=== PATIENT | male | born 1980 | race Caucasian/White ===

== ENCOUNTER 2023-01-08 21:46 | Inpatient (IN) | payer OTHER, SELFPAY ==
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
[2023-01-08 21:52] VITALS: BP 148/86; PULSE 66; O2SAT 97; BMI 35.9
[2023-01-08 21:58] VITALS: BP 138/76; PULSE 6; RESP 18; TEMP 36.5; O2SAT 98
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
--- NOTE | 2023-01-08 22:12 | MHC.EDTECH ---
Patient changed over and belongings in locker 9 in pod
--- NOTE | 2023-01-08 22:14 | ED.PSYCH ---
HPI - Psych General Chief Complaint: Psychiatric Symptoms Stated Complaint: SI, pt wrapped cord around neck, per ems Time Seen by Provider: 01/08/23 22:11 Source: patient Mode of arrival: ambulatory Limitations: no limitations History of Present Illness HPI Narrative: Patient history of opiate abuse depression PTSD not seeing any therapist or psychiatrist not taking any medication under increased stress lately patient is homeless and jobless and his girlfriend left him today patient did not know what to do called the slot operations manager first and then tried to put cord around his neck for few minutes which was cut by slot operations manager patient did not choke no petechiae no subconjunctival hemorrhage for alert and awake when the slot operations manager came complaining of mild pain in the neck no history of suicidal attempt in the past Related Data Home Medications Medication Instructions Recorded Confirmed hydroxyzine pamoate 50 mg capsule 50 mg PO BID PRN Anxiety 01/09/23 01/09/23 prazosin 1 mg capsule 1 mg PO BEDTIME 01/09/23 01/09/23 quetiapine 100 mg tablet 100 mg PO BEDTIME 01/09/23 01/09/23 quetiapine 200 mg tablet 200 mg PO BEDTIME 01/09/23 01/09/23 sertraline 50 mg tablet mg PO 01/09/23 Allergies Allergy/AdvReac Type Severity Reaction Status Date / Time No Known Allergies Allergy Verified 01/08/23 22:15 Review of Systems Review of Systems: Yes all other systems are reviewed and are negative [facility] Social History Alcohol intake: current Alcohol intake frequency: a few times a month Smoked in Last 30 Days: Yes Use of substances other than those prescribed or required for medical reasons: Yes Substance Use Type: Marijuana and Painkillers Substance Use Type Other:: percocet Substance Use Frequency: Daily Last Used Substance: Hours (ago) Advance Directives: No Advance Directives Information Provided: No Healthcare Proxy: No Guardian: No Physical Exam Vital Signs: Vital Signs: Last Vital Signs Temp 97.7 F 01/08/23 21:58 Pulse 6 L 01/08/23 21:58 Resp 16 01/09/23 07:31 BP 138/76 01/08/23 21:58 Pulse Ox 98 01/08/23 21:58 O2 Del Method Room Air 01/08/23 21:58 BMI result Body Mass Index 35.9 Appearance: Alert. Oriented X3. No acute distress. Eyes: PERRLA, No Nystagmus ENT: Pharynx normal. Oral Mucosa moist no petechia palak on the face no subconjunctival hemorrhage Neck: Normal inspection. Neck supple. Erythematous palak of the cord on the neck CVS: Normal heart rate and rhythm. Pulses normal. Respiratory: No respiratory distress. Equal air entry bilateral, no wheezing/rales/rhonchi Abdomen: Soft and nontender. Bowel sounds are present, no mass palpable, no CVA tenderness Skin: Skin warm and dry. Normal skin color. Normal skin turgor. Extremities: No lower extremity edema. No calf tenderness psych: Depressed denied any SI or HI at this time no hallucinations or delusions Neuro: Oriented X 3. No motor deficit. No sensory deficit.No cerebellar signs , cranial nerves II-XII intact Medical Decision Making Medical Decision Making [facility] Narrative: Patient has significant depression with suicidal ideation and attempt seen by care team plan for inpatient admission Differential Diagnosis Differential Diagnoses: The differential diagnosis associated with the presentation includes Lab Data [facility] Lab Attestation statement: I reviewed the patient's lab results. 01/08/23 22:53 01/08/23 22:53 Labs: Lab Results 01/08/23 01/09/23 01/09/23 Range/Units 22:53 00:10 00:12 WBC 11.6 H (4.8-10.8) X10*3/uL RBC 4.40 L (4.60-5.80) X10*6/uL Hgb 12.4 L (14.0-18.0) g/dl Hct 37.1 L (42.0-52.0) % MCV 84.3 (80.0-98.0) fL MCH 28.2 (27.0-33.0) pg MCHC 33.4 (31.0-36.0) g/dl RDW 13.2 (11.0-16.0) % Plt Count 267 (160-400) X10*3/uL MPV 9.2 L (9.4-12.4) fL Immature Gran % (Auto) 0.3 (0.0-0.4) % Neut % (Auto) 72.9 (45-73) % Lymph % (Auto) 17.3 L (20-40) % [place] % (Auto) 7.3 (2-11) % Eos % (Auto) 1.3 (0-4) % Baso % (Auto) 0.9 (0-2) % Lymph # (Auto) 2.0 (1.2-4.9) X10*3/uL [place] # (Auto) 0.8 (0.1-1.2) X10*3/uL Eos # (Auto) 0.2 (0.0-0.4) X10*3/uL Baso # (Auto) 0.1 (0.0-0.2) X10*3/uL Abs Immat Gran (auto) 0.03 (0.00-0.03) X10*3/uL Absolute Neuts (auto) 8.5 H (2.0-8.3) x10*3/uL Absolute Nucleated RBC 0.000 (0.0-0.012) X10*3/uL Nucleated RBC % (auto) 0.0 (0.0-0.2) /100WBC Sodium 142 (135-145) mmol/L Potassium 3.6 (3.3-5.1) mmol/L Chloride 106 (96-108) mmol/L Carbon Dioxide 27 (22-29) mmol/L Anion Gap 13 (12-20) BUN 14 (9-16) mg/dL Creatinine 0.71 (0.5-1.4) mg/dL Estim Creat Clear Calc 128.8 Estimated GFR > 60 Random Glucose 95 (60-115) mg/dL Calcium 9.3 (8.4-10.2) mg/dL Total Bilirubin 0.2 (0.0-1.0) mg/dL AST 15 (5-37) U/L ALT 12 (0-40) U/L Alkaline Phosphatase 54 (39-117) U/L Total Protein 6.9 (6.5-8.0) g/dL Albumin 4.5 (3.5-5.0) g/dL Urine Color Yellow Urine Appearance Clear Urine pH 5.5 (5.0-9.0) Ur Specific [place] 1.015 (1.005-1.025) Urine Protein Negative (Neg-Trace) mg/dL Urine Glucose (UA) Negative (Negative) mg/dL Urine Ketones Negative (Negative) mg/dL Urine Blood Negative (Negative) Urine Nitrite Negative (Negative) Ur Leukocyte Esterase Negative (Negative) Urine Opiates Screen Not Detected (Not Detect) Urine Fentanyl Screen POSITIVE H (Not Detect) Ur Barbiturates Screen Not Detected (Not Detect) Ur Phencyclidine Scrn Not Detected (Not Detect) Ur Amphetamines Screen Not Detected (Not Detect) U Benzodiazepines Scrn Not Detected (Not Detect) Urine Cocaine Screen Not Detected (Not Detect) U Marijuana (THC) Screen POSITIVE H (Not Detect) Ethyl Alcohol < 10 mg/dL Independent Interpretation I performed an independent interpretation of an: CT Scan Interpretation: CT/CT soft tissue neck wo IV con IMPRESSION: 1. No demonstrated focal lesion, collection, pathologically enlarged lymphadenopathy, or abnormal enhancement within the soft tissues of the neck. 2. No evidence of acute fracture or traumatic subluxation of the cervical spine. Radiology Impression Discussion of test interpretation with radiology: I have reviewed the radiologist's reading. Discharge Plan Discharge Clinical Impression: Suicide attempt, Major depression, Polysubstance abuse Patient Disposition: Still a Patient Prescriptions: No Action prazosin 1 mg capsule 1 mg PO BEDTIME quetiapine 200 mg tablet 200 mg PO BEDTIME hydroxyzine pamoate 50 mg capsule 50 mg PO BID PRN (Reason: Anxiety) quetiapine 100 mg tablet 100 mg PO BEDTIME sertraline 50 mg tablet PO Interventions: [place]-Suicide Risk Severity Scale Last Done: 01/09/23 00:13
[2023-01-08 22:57] LABS: MANUAL DIFF FLAG NO
[2023-01-08 22:58] LABS: Basophils Absolute Auto 0.1 X10*3/uL (0.0-0.2); Basophils Percent Auto 0.9 % (0-2); Eosinophils Absolute Auto 0.2 X10*3/uL (0.0-0.4); Eosinophils Percent Auto 1.3 % (0-4); Hematocrit 37.1 % (42.0-52.0); Hemoglobin 12.4 g/dl (14.0-18.0); Imm Gran Abs Auto 0.03 X10*3/uL (0.00-0.03); Imm Gran Pct Auto 0.3 % (0.0-0.4); Lymphocytes Percent Auto 17.3 % (20-40); Mean Corpuscular HGB Conc 33.4 g/dl (31.0-36.0); Mean Corpuscular Hemoglobin 28.2 pg (27.0-33.0); Mean Corpuscular Volume 84.3 fL (80.0-98.0); Mean Platelet Volume 9.2 fL (9.4-12.4); Monocytes Absolute Auto 0.8 X10*3/uL (0.1-1.2); Monocytes Percent Auto 7.3 % (2-11); Neutrophils Absolute Auto 8.5 x10*3/uL (2.0-8.3); Neutrophils Percent Auto 72.9 % (45-73); Platelet Count 267 X10*3/uL (160-400); Red Cell Distribution Width 13.2 % (11.0-16.0); White Blood Count 11.6 X10*3/uL (4.8-10.8)
[2023-01-08 23:12] LABS: Ethanol < 10 mg/dL
[2023-01-08 23:13] LABS: Alanine Aminotransferase 12 U/L (0-40); Albumin Level 4.5 g/dL (3.5-5.0); Alkaline Phosphatase 54 U/L (39-117); Anion Gap 13 (12-20); Aspartate Amino Transferase 15 U/L (5-37); Bilirubin Total 0.2 mg/dL (0.0-1.0); Blood Urea Nitrogen 14 mg/dL (9-16); Calcium 9.3 mg/dL (8.4-10.2); Carbon Dioxide 27 mmol/L (22-29); Chloride 106 mmol/L (96-108); Creatinine Clr Calc Pharmacy 128.8; Estimated Glomerular Filt Rate > 60; Glucose Random 95 mg/dL (60-115); Potassium 3.6 mmol/L (3.3-5.1); Sodium 142 mmol/L (135-145); Total Protein 6.9 g/dL (6.5-8.0)
--- NOTE | 2023-01-08 23:50 | PC.NURSE ---
pt resting comfortably with eyes closed, breathing even and unlabored. no apparent distress noted. sitter at bedside
--- NOTE | 2023-01-09 00:05 | PC.NURSE ---
pt transferred to Main ED to pod, Section 12, calm and cooperative
[2023-01-09 00:19] LABS: Appearance Urine Clear; Color Urine Yellow; Glucose Urine UA Negative (Negative); Leukocyte Esterase Urine Negative (Negative); Nitrite Urine Negative (Negative); PH 5.5 (5.0-9.0); Specific Gravity - Urine 1.015 (1.005-1.025); Urine Blood Negative (Negative); Urine Ketones Negative (Negative); Urine Protein Negative (Neg-Trace)
[2023-01-09 00:25] LABS: Amphetamine Screen Urine Not Detected (Not Detect); Barbiturates, Urine Not Detected (Not Detect); Benzodiazepines Screen Urine Not Detected (Not Detect); Cannabinoid Screen Urine POSITIVE (Not Detect); Cocaine Screen Urine Not Detected (Not Detect); Fentanyl, urine POSITIVE (Not Detect); Opiate Screen Urine Not Detected (Not Detect); Phencyclidine Screen Urine Not Detected (Not Detect)
--- NOTE | 2023-01-09 02:31 | PC.NURSE ---
pt reported he crushes his 4-6 percocet a day for many years last dose yesterday am. Dr. Peters aware
--- NOTE | 2023-01-09 02:42 | PC.NURSE ---
pt section 12 by care team
[2023-01-09 07:31] VITALS: RESP 16
[2023-01-09] MEDS: LORazepam 1 MG TABLET 2 MG PO (11:50)
--- NOTE | 2023-01-09 11:58 | PC.NURSE ---
patient is alert and oriented and able to make needs known. Patient is able to ambulate on his own around POD. Patient has been gagging all morning without vomiting. scored an 8 on COWS. Patient states they feel they are withdrawing. MD consulted, patient given 2mg ativan. Pending effect.
[2023-01-09 14:42] VITALS: RESP 16
--- NOTE | 2023-01-09 19:26 | PC.NURSE ---
patient appears to remain asleep at present respirations are even and unlabored patient appears in no distress
[2023-01-09 19:37] LABS: COVID-19 Test Negative (Negative); IDNOW Serial# 6674DD1D
[2023-01-09 23:01] VITALS: BP 103/82; PULSE 82; RESP 17; TEMP 36.8; O2SAT 97
[2023-01-10] MEDS: QUEtiapine Fumarate 50 MG TABLET PO (01:20)
[2023-01-10] MEDS: LORazepam 1 MG TABLET 2 MG PO (08:40)
[2023-01-10 09:47] VITALS: RESP 18
[2023-01-10 14:12] VITALS: RESP 16
--- NOTE | 2023-01-10 17:25 | PC.NURSE ---
patient is alert and able to make needs known. Patient denies SI/HI. patient has a good appetite and ate 100% of breakfast and lunch. Patient stated they felt like they were withdrawing from opiates and felt nauseous and anxious. MD consulted. 2mg ativan given given PO with positive effect. Patient is able to ambulate on his own around unit.
[2023-01-10 21:38] VITALS: BP 133/81; PULSE 71; RESP 17; TEMP 36.9; O2SAT 95
--- NOTE | 2023-01-11 | ECG_ITS ---
Test Reason : CHECK PROLONG QT Blood Pressure : / mmHG Vent. Rate : 052 BPM Atrial Rate : 052 BPM P-R Int : 144 ms QRS Dur : 096 ms QT Int : 428 ms P-R-T Axes : 054 063 069 degrees QTc Int : 398 ms Sinus bradycardia Otherwise normal ECG No previous ECGs available Referred By: Claudette Dalal Electronically Signed By:
--- NOTE | 2023-01-11 04:26 | PC.NURSE ---
Pt resting at the bedside. No apparent distress noted. Monitoring is ongoing.
[2023-01-11 05:35] VITALS: RESP 18
[2023-01-11] MEDS: Ondansetron ODT 4 MG TAB.RAPDIS TRANSLINGU (11:31)
[2023-01-11] MEDS: LORazepam 1 MG TABLET 2 MG PO (11:31)
--- NOTE | 2023-01-11 11:56 | P.CNPS_ITS ---
History of Present Illness Date of Service: 01/11/2023 Chief Complaint: SI, pt wrapped cord around neck, per ems Reason for Consult: SI/opioid withdrawal Discussed with referring provider: Yes Sources of Information: patient interviewed, chart reviewed and crisis/core team assessment reviewed HPI Narrative: Mr. Easton is a 42 year-old male with hx of opioid use disorder and MDD who self presented to [facility] ED reporting increase depression and suicidal ideation. Pt was assessed by care team and currently bed search for psych. Pt currently presents with physical discomfort including loose stools vomiting, muscle aches, anxious mood s/s to opioid withdrawal. Pt reports using 8-9 percosets daily for years. He reports he has had methadone for taper but has not been on MAT. He reports he is mostly interested in taper with methadone but not to stay on it long terms. He continues to report depressed mood, SI, no plan. No signs of psychosis or delusions. Diagnostics Vital Signs (24Hr): Vital Signs - 24 hr 01/10/23 14:12 01/10/23 21:38 01/11/23 05:35 Temperature 98.5 F Pulse Rate 71 Respiratory Rate 16 17 18 Blood Pressure 133/81 Pulse Oximetry 95 Oxygen Delivery Method Room Air BMI result Body Mass Index 35.9 Labs 01/08/23 22:53 01/08/23 22:53 Labs: Laboratory Results - last 48 hr 01/09/23 18:58 COVID-19 (JERRY) Negative COVID-19 Clin Com See Note Imaging Radiology Impressions: ITS Impressions Soft Tissue Neck CT 01/08/23 22:48 IMPRESSION: 1. No demonstrated focal lesion, collection, pathologically enlarged lymphadenopathy, or abnormal enhancement within the soft tissues of the neck. 2. No evidence of acute fracture or traumatic subluxation of the cervical spine. Mental Status Exam Mental Status Exam Narrative: Appearance: wearing hospital gown, fair hygiene, in NAD Behavior: cooperative Psychomotor: no agitation or retardation noted Speech: clear, normal rate/rhythm/volume, spontaneous TP: linear TC: no signs of psychosis, feeling physically unwell Mood: not well Affect: congruent SI: continues to report HI: none VH/AH: none Delusions: none Insight/judgment: fair x 2. memory/cog: alert, oriented x 3. grossly intact to conversational testing. Medications Medications Current Medications Cyclobenzaprine HCl (Cyclobenzaprine Hcl 10 Mg Tablet) 10 mg PO TID PRN PRN Reason: muscle spams Loperamide HCl (Loperamide Hcl 2 Mg Capsule) 2 mg PO Q4H PRN PRN Reason: loose stool Allergies Allergies Allergy/AdvReac Type Severity Reaction Status Date / Time No Known Allergies Allergy Verified 01/08/23 22:15 Assessment & Plan Assessment & Plan (1) MDD (major depressive disorder), recurrent episode, moderate: Status: Acute Code(s): F33.1 - Major depressive disorder, recurrent, moderate (2) Opioid use disorder, moderate, dependence: Status: Acute Code(s): F11.20 - Opioid dependence, uncomplicated Plan Mr. Easton is a 42 year-old male with hx of opioid use disorder, MDD who self presented to [facility] ED reporting increase depression, SI. He is currently experiencing s/s of opioid use withdrawal. He is interested in methadone taper, no interested in MAT. We discussed risks, benefits and alternative treatment options. Will order comfort medication including loperamide, muscle relaxant, clonidine. Will given one time dose of methadone 20mg. PLAN 1. Continue bedsearch for inpt psych 2. ordered methadone 20mg one time, may receive up to 40mg in next 24hr. 3. ordered loperamide, flexeril, clonidine. Total time managing care of this patient today ____ minutes.
--- NOTE | 2023-01-11 12:00 | PC.NURSE ---
pt vomitted x 1 , states he has been withdrawing from street percs , pt given ativan and miranda Baker from Psych started the pt on methadone,
[2023-01-11] MEDS: methADONE HCl 20 MG/2 ML ORAL.CONC PO (12:12)
[2023-01-11] MEDS: Cyclobenzaprine HCl 10 MG TABLET PO (12:19)
[2023-01-11] MEDS: Loperamide HCl 2 MG CAPSULE PO (12:19)
[2023-01-11 18:14] VITALS: BP 131/80; PULSE 81; RESP 15; TEMP 36.8; O2SAT 95
[2023-01-11 18:19] VITALS: BMI 24.6
[2023-01-11] MEDS: Nicotine 21 MG PATCH.TD24 TRANSDERMA (19:04)
[2023-01-11] MEDS: hydrOXYzine HCL 25 MG TABLET PO (19:04)
[2023-01-11] MEDS: OLANZapine 5 MG TABLET PO (19:04)
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
[2023-01-11] MEDS: Nicotine Polacrilex 2 MG GUM 4 MG BUCCAL (21:24)
[2023-01-11] MEDS: traZODone HCL 50 MG TABLET PO ×2 (21:24→22:28)
[2023-01-12 08:15] VITALS: BP 126/65; PULSE 69; RESP 16; TEMP 36.6; O2SAT 96
[2023-01-12] MEDS: Nicotine 21 MG PATCH.TD24 TRANSDERMA (09:36)
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
[2023-01-12] MEDS: methADONE HCl 20 MG/2 ML ORAL.CONC PO (10:38)
[2023-01-12] MEDS: Cyclobenzaprine HCl 10 MG TABLET PO (10:39)
[2023-01-12] MEDS: Ondansetron ODT 4 MG TAB.RAPDIS TRANSLINGU (10:40)
[2023-01-12] MEDS: hydrOXYzine HCL 25 MG TABLET PO (13:18)
[2023-01-12 18:00] VITALS: BP 136/67; PULSE 72; TEMP 36.7; O2SAT 97
[2023-01-12 18:33] LABS: COVID-19 Test Negative (Negative); IDNOW Serial# BCCEAD1C
[2023-01-12] MEDS: OLANZapine 5 MG TABLET PO (21:33)
[2023-01-12] MEDS: traZODone HCL 50 MG TABLET PO (21:33)
[2023-01-13] MEDS: methADONE HCl 20 MG/2 ML ORAL.CONC 15 MG PO (08:14)
[2023-01-13] MEDS: FLUoxetine HCl 10 MG CAPSULE PO (08:14)
[2023-01-13] MEDS: Nicotine 21 MG PATCH.TD24 TRANSDERMA (08:19)
[2023-01-13 08:24] VITALS: BP 131/59; PULSE 77; RESP 16; TEMP 36.7; O2SAT 98
[2023-01-13] MEDS: OLANZapine 5 MG TABLET PO (17:06)
[2023-01-13 18:00] VITALS: BP 146/65; PULSE 71; TEMP 36.8; O2SAT 97
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
[2023-01-13] MEDS: QUEtiapine Fumarate 50 MG TABLET PO (23:03)
[2023-01-13] MEDS: traZODone HCL 50 MG TABLET PO (23:03)
[2023-01-14] MEDS: traZODone HCL 50 MG TABLET PO ×2 (01:07→22:30)
[2023-01-14] MEDS: Nicotine 21 MG PATCH.TD24 TRANSDERMA (08:17)
[2023-01-14] MEDS: methADONE HCl 20 MG/2 ML ORAL.CONC 15 MG PO (08:21)
[2023-01-14] MEDS: FLUoxetine HCl 10 MG CAPSULE PO (08:21)
[2023-01-14 09:02] VITALS: BP 130/72; PULSE 71; RESP 14; TEMP 36.5; O2SAT 95
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
[2023-01-14 11:20] VITALS: BMI 24.1
[2023-01-14 11:51] LABS: COVID-19 Test Negative (Negative); IDNOW Serial# 9DB6401D
[2023-01-14 16:20] VITALS: BP 124/61; PULSE 76; TEMP 36.7
[2023-01-14] MEDS: Cyclobenzaprine HCl 10 MG TABLET PO ×2 (16:21→22:28)
[2023-01-14] MEDS: cloNIDine HCL 0.1 MG TABLET PO ×2 (16:22→22:31)
[2023-01-14] MEDS: QUEtiapine Fumarate 50 MG TABLET PO (22:30)
[2023-01-15] MEDS: Nicotine 21 MG PATCH.TD24 TRANSDERMA (09:04)
[2023-01-15] MEDS: FLUoxetine HCl 10 MG CAPSULE PO (09:05)
[2023-01-15] MEDS: methADONE HCl 20 MG/2 ML ORAL.CONC 10 MG PO (09:05)
[2023-01-15 10:00] VITALS: BP 131/69; PULSE 75; RESP 16; TEMP 37.1; O2SAT 96
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
[2023-01-15 19:41] VITALS: BP 125/68; PULSE 71; RESP 16; TEMP 36.7; O2SAT 97
[2023-01-15 22:00] VITALS: BP 130/70
[2023-01-15] MEDS: traZODone HCL 50 MG TABLET PO (22:30)
[2023-01-15] MEDS: cloNIDine HCL 0.1 MG TABLET PO (22:30)
[2023-01-15] MEDS: Cyclobenzaprine HCl 10 MG TABLET PO (22:30)
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
[2023-01-16 08:50] VITALS: BP 127/70; PULSE 80; RESP 16; TEMP 36.4; O2SAT 96
[2023-01-16] MEDS: FLUoxetine HCl 10 MG CAPSULE PO (08:53)
[2023-01-16] MEDS: methADONE HCl 20 MG/2 ML ORAL.CONC 5 MG PO (08:55)
[2023-01-16] MEDS: Nicotine 21 MG PATCH.TD24 TRANSDERMA (08:58)
[2023-01-16 11:17] LABS: COVID-19 Test Negative (Negative); IDNOW Serial# 08D9AD1C
[2023-01-16 16:59] VITALS: BP 125/69; PULSE 79; TEMP 36.7; O2SAT 96
[2023-01-16] MEDS: Cyclobenzaprine HCl 10 MG TABLET PO (19:38)
[2023-01-16 22:17] VITALS: BP 127/59; PULSE 79
[2023-01-16] MEDS: cloNIDine HCL 0.1 MG TABLET PO (22:24)
[2023-01-16] MEDS: traZODone HCL 50 MG TABLET PO (22:24)
[2023-01-17 09:01] VITALS: BP 119/57; PULSE 69; RESP 16; TEMP 36.4; O2SAT 97
[2023-01-17] MEDS: FLUoxetine HCl 10 MG CAPSULE PO (09:03)
[2023-01-17] MEDS: methADONE HCl 20 MG/2 ML ORAL.CONC 5 MG PO (09:03)
[2023-01-17] MEDS: Nicotine 21 MG PATCH.TD24 TRANSDERMA (09:06)
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
[2023-01-17 17:12] VITALS: BP 125/74; PULSE 97; RESP 18; TEMP 37.2; O2SAT 97
[2023-01-17] MEDS: Cyclobenzaprine HCl 10 MG TABLET PO (19:33)
[2023-01-17] MEDS: cloNIDine HCL 0.1 MG TABLET PO (22:13)
[2023-01-17] MEDS: QUEtiapine Fumarate 50 MG TABLET PO (22:13)
[2023-01-17] MEDS: traZODone HCL 50 MG TABLET PO (22:14)
[2023-01-18 08:09] VITALS: BP 107/55; PULSE 69; RESP 16; TEMP 36.6; O2SAT 95
[2023-01-18] MEDS: FLUoxetine HCl 10 MG CAPSULE PO (08:43)
[2023-01-18] MEDS: methADONE HCl 20 MG/2 ML ORAL.CONC 5 MG PO (08:44)
[2023-01-18] MEDS: Nicotine 21 MG PATCH.TD24 TRANSDERMA (08:46)
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
[2023-01-18 10:33] LABS: COVID-19 Test Negative (Negative); IDNOW Serial# 08D9AD1C
[2023-01-18] MEDS: Cyclobenzaprine HCl 10 MG TABLET PO (14:13)
[2023-01-18 22:20] VITALS: BP 135/75; PULSE 83; TEMP 36.8
[2023-01-18] MEDS: cloNIDine HCL 0.1 MG TABLET PO (22:27)
[2023-01-18] MEDS: QUEtiapine Fumarate 50 MG TABLET PO (22:28)
[2023-01-18] MEDS: traZODone HCL 50 MG TABLET PO (22:28)
[2023-01-19 09:23] VITALS: BP 133/74; PULSE 72; RESP 16; TEMP 37.1; O2SAT 98
[2023-01-19] MEDS: FLUoxetine HCl 10 MG CAPSULE PO (09:29)
[2023-01-19] MEDS: Nicotine 21 MG PATCH.TD24 TRANSDERMA (09:36)
[2023-01-19] MEDS: Buprenorphine/Naloxone 4/1 mg FILM 1 FILM SUBLINGUAL ×2 (11:16→20:45)
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
[2023-01-19 18:00] VITALS: BP 133/60; PULSE 71; TEMP 37; O2SAT 97
[2023-01-19] MEDS: traZODone HCL 50 MG TABLET PO (22:23)
[2023-01-19] MEDS: cloNIDine HCL 0.1 MG TABLET PO (22:24)
[2023-01-20] MEDS: Acetaminophen 325 MG TABLET 650 MG PO (00:19)
[2023-01-20] MEDS: Buprenorphine/Naloxone 8/2 mg FILM 1 FILM SUBLINGUAL (08:48)
[2023-01-20] MEDS: FLUoxetine HCl 10 MG CAPSULE PO (08:48)
[2023-01-20 08:49] VITALS: BP 140/67; PULSE 71; RESP 18; TEMP 36.7; O2SAT 98
[2023-01-20] MEDS: Nicotine 21 MG PATCH.TD24 TRANSDERMA (08:51)
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
--- NOTE | 2023-01-20 17:09 | PC.NURSE ---
Hipolito's health care attorney, Gilson Tony, called to let patient's provider know that a note needed to be faxed to the [facility] in [place], [place] to excuse patient from court for 01/21/23. Thierno Plata APRN took the call and faxed the information to the court. Mr. Jimenez was notified that fax had been sent.
[2023-01-20 22:40] VITALS: BP 128/72; PULSE 78; TEMP 36.9
[2023-01-20] MEDS: cloNIDine HCL 0.1 MG TABLET PO (22:46)
[2023-01-20] MEDS: traZODone HCL 50 MG TABLET PO (22:46)
[2023-01-21 08:00] VITALS: BP 136/79; PULSE 75; RESP 16; TEMP 37.1; O2SAT 99
[2023-01-21] MEDS: Nicotine 21 MG PATCH.TD24 TRANSDERMA (09:08)
[2023-01-21] MEDS: Buprenorphine/Naloxone 8/2 mg FILM 1 FILM SUBLINGUAL (09:09)
[2023-01-21] MEDS: FLUoxetine HCl 10 MG CAPSULE PO (09:09)
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
[2023-01-21 10:17] VITALS: BMI 26.3
[2023-01-21 16:34] VITALS: BP 129/66; PULSE 80; TEMP 37.3; O2SAT 97
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
[2023-01-21] MEDS: cloNIDine HCL 0.1 MG TABLET PO (22:06)
[2023-01-21] MEDS: QUEtiapine Fumarate 50 MG TABLET PO (22:06)
[2023-01-22 08:46] VITALS: BP 135/70; PULSE 73; RESP 16; TEMP 36.9; O2SAT 99
[2023-01-22] MEDS: FLUoxetine HCl 10 MG CAPSULE PO (09:29)
[2023-01-22] MEDS: Naloxone HCl Nasal TAKE HOME 4 MG SPRAY 8 MG NOSTRILALT (09:29)
[2023-01-22] MEDS: Buprenorphine/Naloxone 8/2 mg FILM 1 FILM SUBLINGUAL (09:29)
== END 2023-01-22 10:50 | disposition home or self-care (01) | DRG 751 ==
LOC: HO.ED 01-11 07:45 → HO.PM5 01-11 15:30
PROVIDERS: Clinical Nurse Specialist Psychiatric/Mental Health, Adult; Emergency Medicine; Admitting Provider Psychiatry & Neurology Psychiatry; Emergency Provider Internal Medicine; Visit Provider Psychiatry & Neurology Psychiatry
DX: F33.1 Major depressive disorder, recurrent, moderate (principal); R45.851 Suicidal ideations; F11.23 Opioid dependence with withdrawal; F43.10 Post-traumatic stress disorder, unspecified; Z20.822 Contact with and (suspected) exposure to COVID-19; Z59.02 Unsheltered homelessness; Z79.899 Other long term (current) drug therapy
CPT/HCPCS: 36415; 70490; 80053; 80307; 81003; 85025; 87635; 93005; 99285; S9485

== ENCOUNTER → 2023-01-08 22:18 | Outpatient (BNV) | payer OTHER, SELFPAY | PROVIDERS: Emergency Provider Internal Medicine; Visit Provider Social Worker | DX: F33.2 Major depressive disorder, recurrent severe without psychotic features (principal); F11.20 Opioid dependence, uncomplicated; F43.11 Post-traumatic stress disorder, acute | CPT/HCPCS: 90792; 99231; 99232; 99238; 99285 ==